=== PATIENT | male | born 1940 | race Caucasian/White ===

== ENCOUNTER 2016-08-02 21:43 | Inpatient (IN) | payer MEDICARE, BC ==
[2016-08-03] MEDS ORDERED: XARELTO15 MG PO (00:34)
[2016-08-03] MEDS ORDERED: LEVOTHYROXINE50 MCG PO (00:34)
[2016-08-03] MEDS ORDERED: DILTIAZEM 24HR180 MG PO (00:35)
[2016-08-03] MEDS ORDERED: PROTONIX 40 MG40 M1 PO (00:35)
[2016-08-03] MEDS ORDERED: ENALAPRIL MALEA10 MG PO (00:36)
[2016-08-03] MEDS ORDERED: NEURONTIN 300300 MG PO (00:36)
[2016-08-03] MEDS ORDERED: FINASTERIDE5 MG PO (00:37)
[2016-08-03] MEDS ORDERED: FUROSEMIDE40 MG PO (00:38)
[2016-08-03] MEDS ORDERED: SUCRALFATE1 GM PO (00:38)
[2016-08-03 05:13] LABS: RED BLOOD COUNT 4.88 M/UL (4.20-5.50); WHITE BLOOD COUNT 9.2 K/UL (4.5-11.0)
[2016-08-03 06:04] LABS: BUN/CREATININE RATIO 16 (0-10)
== END 2016-08-04 15:00 | disposition home or self-care (01) | DRG 310 ==
LOC: PROG CARE 21:43 → MED SURG 4 08-03 00:08
PROVIDERS: ADMIT Internal Medicine Cardiovascular Disease
DX: R00.1 Bradycardia, unspecified (principal); I48.2 Chronic atrial fibrillation; I95.2 Hypotension due to drugs; T46.1X5A Adverse effect of calcium-channel blockers, initial encounter; I10 Essential (primary) hypertension; E03.9 Hypothyroidism, unspecified; I27.2 Other secondary pulmonary hypertension; I08.3 Combined rheumatic disorders of mitral, aortic and tricuspid valves; Z87.11 Personal history of peptic ulcer disease; Z79.01 Long term (current) use of anticoagulants; Z79.899 Other long term (current) drug therapy; Z98.890 Other specified postprocedural states; Z82.49 Family history of ischemic heart disease and other diseases of the circulatory system
CPT/HCPCS: ECHO; 36415; 80048; 82550; 82553; 84484; 85025; 93306; J1265

== ENCOUNTER 2021-12-04 18:25 | Inpatient (IN) | payer MEDICARE ==
[~2021-12-04] VITALS: Ht 188 cm; Wt 86.2 kg
[~2021-12-04 18:25] MED LIST: DILTIAZEM 24HR180 MG PO; ENALAPRIL MALEA10 MG PO; FINASTERIDE5 MG PO; FUROSEMIDE40 MG PO; GABAPENTIN600 MG PO; LEVOTHYROXINE50 MCG PO; PROTONIX 40 MG40 M1 PO; SUCRALFATE1 GM PO; XARELTO15 MG PO
[2021-12-04 20:15] LABS: HEMOGLOBIN 14.6 gm/dl (14.0-17.5); RED BLOOD COUNT 4.69 M/UL (4.20-5.50)
--- NOTE | 2021-12-05 02:38 | NUR ---
NOTIFIED DR ASHLEY OF CRITICAL LACTIC ACID LEVEL. RECIEVED NO NEW ORDERS. WILL CONTINUE TO MONITOR.
--- NOTE | 2021-12-05 02:50 | NUR ---
PT DID NOT BRING HOME MEDICATION BOTTLES IN TO THE HOSPITAL. HOME MED REC WILL BE COMPLETED BY PHARMACY IN THE MORNING.
[2021-12-05 06:43] LABS: HEMOGLOBIN 13.1 gm/dl (14.0-17.5); RED BLOOD COUNT 4.34 M/UL (4.20-5.50); WHITE BLOOD COUNT 14.8 K/UL (4.5-11.0)
[2021-12-05 07:36] LABS: BUN/CREATININE RATIO 30 (0-10)
[2021-12-05] MEDS ORDERED: ACETAMINOPHEN-1 EAC1 PO (13:56)
[2021-12-05] MEDS ORDERED: CYCLOBENZAPRINE10 MG PO (13:57)
[2021-12-05] MEDS ORDERED: METFORMIN HCL500 MG PO (13:58)
[2021-12-05] MEDS ORDERED: TRIAMCINOLONE A80 GM TOP (13:59)
[2021-12-06 06:18] LABS: HEMOGLOBIN 11.9 gm/dl (14.0-17.5); WHITE BLOOD COUNT 11.9 K/UL (4.5-11.0)
[2021-12-06 06:21] LABS: RED BLOOD COUNT 3.87 M/UL (4.20-5.50)
[2021-12-06 06:43] LABS: BUN/CREATININE RATIO 30 (0-10)
[2021-12-06] MEDS ORDERED: AMOX TR-K CLV1 EAC4 PO (13:31)
== END 2021-12-06 14:53 | disposition home or self-care (01) | DRG 854 ==
LOC: ER1 18:25 → CDU 12-05 01:30 → MED SURG 4 12-05 01:30
PROVIDERS: Internal Medicine; Physician Assistant; Surgery; ADMIT Internal Medicine
PROC: 0FT44ZZ Resection of Gallbladder, Percutaneous Endoscopic Approach (ICD-10-PCS; principal; 2021-12-05 14:51)
DX: A41.9 Sepsis, unspecified organism (principal); I48.20 Chronic atrial fibrillation, unspecified; K81.0 Acute cholecystitis; Z20.822 Contact with and (suspected) exposure to COVID-19; E03.9 Hypothyroidism, unspecified; I10 Essential (primary) hypertension; N40.0 Benign prostatic hyperplasia without lower urinary tract symptoms; Z87.11 Personal history of peptic ulcer disease; Z90.89 Acquired absence of other organs; Z79.899 Other long term (current) drug therapy; Z79.84 Long term (current) use of oral hypoglycemic drugs
CPT/HCPCS: 0240U; 36415; 71045; 80053; 81001; 83605; 83690; 83735; 84132; 85025; 93005; 96374; 99285; C9113; J2001; J2250; J2270; J2405; J2543; J2704; J3010; J3480; J7070; Q9967